=== PATIENT | male | born 1975 | race Two or more races ===

== ENCOUNTER 2020-01-27 12:58 | Inpatient (IN) | payer MEDICAID ==
[~2020-01-27] VITALS: Ht 177.8 cm; Wt 69.8 kg
[~2020-01-27 12:58] MED LIST: ASPI81CH43 PO; INSUINJ IJ; INSUINJ37 SUBCUT; LISI-275 PO; METO25TA5 PO
[2020-01-27] MEDS ORDERED: SODIUM CHLORIDE 0.9% 1,000 ML IVB ONE (14:34)
[2020-01-27 15:03] LABS: Basophils # (auto) 0.1 10 ^3/uL (0-0.2); Basophils % (auto) 0.6 % (0.0-2.0); Eosinophils # (auto) 0 10 ^3/uL (0-0.8); Eosinophils % (auto) 0.4 % (0.0-7.0); Hematocrit 35.5 % (41.0-53.0); Lymphocytes # (auto) 0.9 10 ^3/uL (0.4-5.4); Lymphocytes % (auto) 8.9 % (10.0-50.0); Mean Corpuscular Hemoglobin 28.7 pg (28.0-32.0); Mean Corpuscular Hgb Conc. 33.7 g/dL (32.0-36.0); Monocytes # (auto) 0.5 10 ^3/uL (0-1.3); Monocytes % (auto) 4.8 % (0.0-12.0); Neutrophils # (auto) 8.7 10 ^3/uL (1.6-8.6); Neutrophils % (auto) 85.3 % (37.0-80.0); Platelet Count (auto) 338 10^3/uL (140-450); Red Blood Cells 4.17 10^6/uL (4.5-5.90); White Blood Cell 10.2 10^3/uL (4.4-10.8)
[2020-01-27 15:13] LABS: Partial Thromboplastin Time 27.6 sec (23.64-32.05)
[2020-01-27 15:18] LABS: Albumin 1.8 g/dL (3.4-5.0); Anion Gap 7 (5-15); Blood Urea Nitrogen 47 mg/dL (7-18); Calcium 7.8 mg/dL (8.5-10.1); Carbon Dioxide 25 mmol/L (21-32); Chloride 91 mmol/L (98-107); Potassium 4.1 mmol/L (3.5-5.1); Sodium 123 mmol/L (136-145)
[2020-01-27 15:26] LABS: Alanine Aminotransferase 18 U/L (16-61); Alkaline Phosphatase 180 U/L (45-117); Aspartate Aminotransferase 13 U/L (15-37); BUN/Creatinine Ratio 14.6; Bilirubin, Total 0.3 mg/dL (0.2-1.0); GFR African American 27 mL/min; GFR Non-African American 22 mL/min; Total Protein 5.9 g/dL (6.4-8.2)
[2020-01-27 15:36] LABS: Glucose 926 mg/dL (74-106)
[2020-01-27] MEDS ORDERED: CLINDAMYCIN 600MG IV 50 ML IV ONE (15:45)
[2020-01-27] MEDS ORDERED: InsuLIN REG 1unit/0.01ml Soln (100units/ml) IV ONE (16:00)
[2020-01-27] MEDS ORDERED: SODIUM CHLORIDE 0.9% 1,000 ML IV ONE ×2 (16:00→22:30)
[2020-01-27 16:58] LABS: Urine Bacteria NONE SEEN /hpf (None Seen); Urine Blood 1+ /uL (Negative); Urine Specific Gravity 1.016 (1.001-1.035); Urine WBC <1 /hpf (0 - 3)
[2020-01-27] MEDS ORDERED: SODIUM CHLORIDE 0.9% 1,000 ML IV SCH (17:00)
[2020-01-27] MEDS ORDERED: DEXTROSE (50%) 50ML SYRG IV ONE (17:00)
[2020-01-27] MEDS ORDERED: levoFLOXacin 500MG 100 ML IV ONE (17:00)
[2020-01-27] MEDS ORDERED: hydrALAZINE HCL 20 MG/ML VL IV PRN (17:00)
[2020-01-27] MEDS: ACCU-CHEK COMFORT CURVE STRIP VI SCH ×2 (18:07→21:45)
[2020-01-27] MEDS: InsuLIN REG 1unit/0.01ml Soln (100units/ml) SC SCH ×2 (18:24→21:49)
[2020-01-27 18:33] LABS: Protein, Urine 310.2 mg/dL (0.0-11.9)
[2020-01-27] MEDS: INSULIN LANTUS (GLARGINE) 1 /0.01ml (100units/ml) SC SCH (19:17)
[2020-01-27] MEDS ORDERED: ERGOCALCIFEROL 50,000 UNIT(1.25MG) CAP PO SCH (20:30)
[2020-01-27] MEDS ORDERED: INSU1INJ19 SC (20:32)
[2020-01-27] MEDS ORDERED: INSU100I27 SC (20:33)
[2020-01-27] MEDS ORDERED: LOSA25TA38 PO (20:35)
[2020-01-27] MEDS ORDERED: FURO40TA4 PO (20:35)
[2020-01-27] MEDS ORDERED: METO25TA5 PO (20:35)
[2020-01-27] MEDS ORDERED: ACE3T PO (20:36)
[2020-01-27] MEDS ORDERED: ATOR20TA50 PO (20:36)
[2020-01-27] MEDS ORDERED: CHLO25TA22 PO (20:37)
[2020-01-27] MEDS ORDERED: CEPH500C PO (20:37)
[2020-01-27] MEDS ORDERED: DEXTROSE (50%) 50ML SYRG IV PRN (22:30)
[2020-01-27 22:56] LABS: BUN/Creatinine Ratio 15.3; Calcium 8.6 mg/dL (8.5-10.1); Potassium 3.8 mmol/L (3.5-5.1)
[2020-01-27] MEDS: CLINDAMYCIN 600MG IV 50 ML IV SCH (23:46)
[2020-01-27] MEDS: METOPROLOL TARTRATE 25 MG TAB PO SCH (23:47)
[2020-01-28] VITALS (7 sets, daily range): BP systolic 107–142; BP diastolic 66–91
[2020-01-28] MEDS: ACCU-CHEK COMFORT CURVE STRIP VI SCH ×6 (00:19→20:20)
[2020-01-28] MEDS: InsuLIN REG 1unit/0.01ml Soln (100units/ml) SC SCH ×6 (00:23→20:00)
--- NOTE | 2020-01-28 00:34 | NUR ---
Telemetry admit from NELLA BR[facility]COE admitted to Telemetry unit after SBAR received. Patient oriented to SHIVANI MESSER, primary RN, unit, room, bed, and unit policies regarding patient care and visiting hours. Patient now on continuous telemetry monitoring, tele box # [id number] and telemetry reading on arrival to unit is SR. Patient encouraged to call if they need something. All questions and concerns addressed, patient verbalized understanding.
[2020-01-28] MEDS ORDERED: GABA100C9 PO (02:14)
--- NOTE | 2020-01-28 03:15 | NUR ---
ASSUMED CARE ASSUMED CARE OF PATIENT FROM ANITA KLEIN. PATIENT AWAKE, ALERT, AND ORIENTED. NO S/S OF DISTRESS, SOB, OR C/O PAIN. UPDATED PATIENT ON POC. PATIENT VERBALIZED UNDERSTANDING. WILL CONTINUE TO MONITOR Addendum: 01/28/20 at 0452 by JOSÉ MIGUEL HAMMOND RN RN BED IN LOWEST/LOCKED POSITION, BED RAILS UP X2, CALL LIGHT WITHIN REACH
--- NOTE | 2020-01-28 04:00 | NUR ---
PHOTO WOUND PHOTO TAKEN PER PROTOCOL
[2020-01-28] MEDS: CLINDAMYCIN 600MG IV 50 ML IV SCH ×3 (05:31→21:35)
[2020-01-28 05:50] LABS: Basophils # (auto) 0.1 10 ^3/uL (0-0.2); Basophils % (auto) 0.9 % (0.0-2.0); Eosinophils # (auto) 0.2 10 ^3/uL (0-0.8); Eosinophils % (auto) 1.7 % (0.0-7.0); Hematocrit 33.9 % (41.0-53.0); Hemoglobin 11.9 g/dL (13.5-17.5); Lymphocytes # (auto) 1.4 10 ^3/uL (0.4-5.4); Lymphocytes % (auto) 13.9 % (10.0-50.0); Mean Corpuscular Hgb Conc. 35.1 g/dL (32.0-36.0); Mean Corpuscular Volume 82.8 fL (80.0-100.0); Monocytes # (auto) 0.6 10 ^3/uL (0-1.3); Monocytes % (auto) 5.7 % (0.0-12.0); Neutrophils % (auto) 77.8 % (37.0-80.0); Platelet Count (auto) 342 10^3/uL (140-450); Red Cell Distribution Width 12.9 % (11.8-14.3); White Blood Cell 10.3 10^3/uL (4.4-10.8)
[2020-01-28 06:07] LABS: INR 1.03 (0.9-1.15)
[2020-01-28 06:12] LABS: Calcium 8.6 mg/dL (8.5-10.1); Potassium 3.5 mmol/L (3.5-5.1)
[2020-01-28 06:14] LABS: BUN/Creatinine Ratio 16.3; Phosphorus 3.6 mg/dL (2.5-4.90)
[2020-01-28] MEDS: levoFLOXacin 250MG 50 ML IV SCH (09:29)
[2020-01-28] MEDS: METOPROLOL TARTRATE 25 MG TAB PO SCH ×2 (09:29→21:36)
[2020-01-28] MEDS ORDERED: ASPirin 81 mg TAB PO SCH (10:00)
[2020-01-28] MEDS ORDERED: LIDOCAINE 1% (LOCAL ANESTH.) PF 5ml SDV ONE (12:36)
[2020-01-28] MEDS ORDERED: SUCCINYLCHOLINE CHLORIDE 20 MG/ML 10ML VIAL IV ONE (12:36)
[2020-01-28] MEDS ORDERED: MIDAZOLAM HCL 1MG/1ML-2 ML VIAL ONE (12:38)
[2020-01-28] MEDS ORDERED: METOCLOPRAMIDE HCL 5MG/ml INJ 2ml VIAL ONE (12:39)
[2020-01-28] MEDS ORDERED: ETOMIDATE (2MG/ML) 20ML VIAL IV ONE (12:39)
[2020-01-28] MEDS ORDERED: ROCURONIUM 10MG/ML 10ML VIAL IV ONE (12:40)
[2020-01-28] MEDS ORDERED: fentaNYL CITRATE 100 MCG/2 ML VL ONE (12:49)
[2020-01-28] MEDS ORDERED: hydrALAZINE HCL 20 MG/ML VL ONE (12:50)
[2020-01-28] MEDS ORDERED: STERILE WATER 10 ML ONE (12:58)
[2020-01-28] MEDS ORDERED: ePHEDrine SULFATE 50 MG/ML AMP ONE (12:58)
[2020-01-28] MEDS ORDERED: HYDROmorphone HCL 2 MG/ML VL IV PRN ×2 (13:00)
[2020-01-28] MEDS ORDERED: METOCLOPRAMIDE HCL 5MG/ml INJ 2ml VIAL IV PRN (13:00)
[2020-01-28] MEDS ORDERED: NALOXONE HCL 0.4 MG/ML VIAL IV PRN (13:00)
[2020-01-28] MEDS ORDERED: ACCU-CHEK COMFORT CURVE STRIP VI ONE (13:00)
[2020-01-28] MEDS ORDERED: NEOSTIGMINE 1 MG/ML INJ (10mg/10ML VIAL) ONE (13:19)
[2020-01-28] MEDS ORDERED: GLYCOPYRROLATE 0.2 MG/ML 1ML VIAL ONE (13:19)
[2020-01-28] MEDS ORDERED: ESMOLOL HCL 10 ML IV ONE (13:23)
[2020-01-28] MEDS ORDERED: HYDROcodone-ACET 5/325MG TAB PO PRN (13:30)
--- NOTE | 2020-01-28 13:52 | NUR ---
assessment re: consult depression Patient is a 45 year old male who is alert and oriented. Patients cognitive abilities are intact. Prior to admission patient lived home with his Zoe and family and functioned with assistance. Per patient he will return home to his prior living arrangements post discharge and family will transport him home. Patient informed me he has a fww, cane, and shower chair for home use. Patients PCP is Dr Burden. I informed patient about his ss consult regarding mental health concern and new onset depression. Patient informed me he has been depressed due to his increased pain. I have spoken with patient regarding pain management, behavioral health, IE therapist, diabetic education and follow up with PCP. Patient has resources for crisis center and behavioral health, patient will follow up wioth IE therapist, patient has an appointment with pain management and for diabetic education. Patient has been in contact with his PCP and will follow up on discharge. Patient is waiting for back surgery, but needs his HbA1c in better control. Patient has no SI or HI. Patient is not high risk for self harm. I informed patient he has a right to speak to a social sciences department chair regarding all care. I informed patient he has a right to participate in any and all discharge planning. Patient does not have a POA and advanced directive. I have offered patient information on POA and advanced directives. I informed the patient the advantages and benefits of having an Advanced Directive. Patient verbalized understanding and agreed to discharge plan. Addendum: 01/28/20 at 1402 by Jennifer Solitario Amended: Links added.
[2020-01-28] MEDS: INSULIN LANTUS (GLARGINE) 1 /0.01ml (100units/ml) SC SCH (22:00)
[2020-01-29] VITALS (7 sets, daily range): BP systolic 100–143; BP diastolic 59–97
[2020-01-29] MEDS: ACCU-CHEK COMFORT CURVE STRIP VI SCH ×6 (00:27→20:20)
[2020-01-29] MEDS: InsuLIN REG 1unit/0.01ml Soln (100units/ml) SC SCH ×6 (04:14→20:24)
--- NOTE | 2020-01-29 05:45 | NUR ---
PATIENT SITTING UP AT BEDSIDE,REPORTING LIGHTHEADEDNESS. PATIENT REQUEST'S TO CHECK BLOOD PRESSURE. BLOOD PRESSURE IS 106/59 HR 83. PATIENT ASSISTED BACK IN BED.
[2020-01-29] MEDS: CLINDAMYCIN 600MG IV 50 ML IV SCH ×3 (05:46→22:21)
[2020-01-29 06:22] LABS: Potassium 3.3 mmol/L (3.5-5.1)
[2020-01-29 06:27] LABS: BUN/Creatinine Ratio 13.8; Calcium 8.8 mg/dL (8.5-10.1)
[2020-01-29] MEDS: levoFLOXacin 250MG 50 ML IV SCH (10:25)
[2020-01-29] MEDS: METOPROLOL TARTRATE 25 MG TAB PO SCH ×2 (10:26→22:21)
[2020-01-29] MEDS ORDERED: SODIUM CHLORIDE 0.9% 2,000 ML IV ONE (14:15)
--- NOTE | 2020-01-29 15:35 | NUR ---
D/C planning Regarding social service consult for home health for wound care, and IE/ [facility]. Faxed clinical information to [facility] and [facility]. Per Dana with [facility] [phone] patient has been accepted and service to start within 24-48hrs upon d/c day. Faxed clinical information to [facility] medical group regarding follow up appointment with PCP. Faxed clinical information to IE requesting authorization for home health and to refer patient to [facility].
[2020-01-29 19:17] LABS: BUN/Creatinine Ratio 12.1; Calcium 8.6 mg/dL (8.5-10.1); Potassium 3.7 mmol/L (3.5-5.1)
[2020-01-29] MEDS ORDERED: DOCU-94 PO (19:18)
[2020-01-29] MEDS ORDERED: HYDR-4833 PO (19:18)
[2020-01-29] MEDS ORDERED: AMOX-277 PO (19:18)
--- NOTE | 2020-01-29 19:20 | NUR ---
OPENING SHIFT NOTE Assumed care of patient who is A&O x4. Currently on RA with no s/s of distress. denies pain at this time. Patient is ambulatory with a cane at baseline. Reports significant peripheral neuropathy in all four extremities. Dressing to left perineum is CDI. PIV in left AC is intact and patent. IVF infusing as ordered. POC discussed and patient encouraged to call for assistance when needed. Bed is in low locked position with side rails up x2. Call light is within reach and patient encouraged to call for assistance when needed. Will continue to monitor for changes PRN.
[2020-01-29] MEDS: SODIUM CHLORIDE 0.9% 1,000 ML IV SCH (19:30)
--- NOTE | 2020-01-29 20:57 | NUR ---
Left message for Dr. Graf regarding most recent labs.
--- NOTE | 2020-01-29 21:00 | NUR ---
Received call back from Dr. Graf. Informed him of patient's most recent BUN and Creatinine. Dr. Graf would like to keep the patient one more night due to increase in creatinine.
[2020-01-29] MEDS ORDERED: SODIUM CHLORIDE 0.9% 1,000 ML IV ONE (21:15)
[2020-01-29] MEDS: INSULIN LANTUS (GLARGINE) 1 /0.01ml (100units/ml) SC SCH (22:22)
--- NOTE | 2020-01-29 22:33 | NUR ---
Received call from Dr. Field regarding new orders for fluid bolus. Will follow through.
[2020-01-30] MEDS: ACCU-CHEK COMFORT CURVE STRIP VI SCH ×4 (00:35→12:00)
[2020-01-30] MEDS: InsuLIN REG 1unit/0.01ml Soln (100units/ml) SC SCH ×4 (00:41→13:22)
[2020-01-30 05:00] VITALS: BP 147/96
[2020-01-30] MEDS: SODIUM CHLORIDE 0.9% 1,000 ML IV SCH (05:36)
[2020-01-30] MEDS: CLINDAMYCIN 600MG IV 50 ML IV SCH ×2 (05:37→14:00)
[2020-01-30 06:02] LABS: Potassium 3.1 mmol/L (3.5-5.1)
[2020-01-30 06:17] LABS: BUN/Creatinine Ratio 12.5; Calcium 8.2 mg/dL (8.5-10.1)
--- NOTE | 2020-01-30 07:35 | NUR ---
RECEIVED PATIENT AWAKE, ALERT AND ORIENTED X4. PATIENT DENIES SOB AND PAIN, NO S/S DISTRESS NOTED AT THIS TIME. PLAN OF CARE DISCUSSED. PATIENT ADVISED TO CALL FOR ASSISTANCE PRN. BED IN LOW AND LOCKED POSITION, CALL LIGHT AND PHONE WITHIN REACH. WILL CONTINUE TO MONITOR Q1HR AND PRN.
[2020-01-30 08:00] VITALS: BP 110/67
[2020-01-30 09:00] VITALS: BP 139/88
[2020-01-30] MEDS: METOPROLOL TARTRATE 25 MG TAB PO SCH (09:46)
[2020-01-30] MEDS: levoFLOXacin 250MG 50 ML IV SCH (09:46)
[2020-01-30] MEDS ORDERED: SODIUM CHLORIDE 0.9% 1,000 ML IV ONE (11:00)
[2020-01-30 11:09] LABS: Immunoglobulin G, Serum 907 mg/dL (603-1613)
--- NOTE | 2020-01-30 12:30 | NUR ---
PATIENT'S BP IS 161/95. MD MADE AWARE. PER MD OK TO DISCHARGE PATIENT.
[2020-01-30 13:00] VITALS: BP 163/109
--- NOTE | 2020-01-30 13:00 | NUR ---
DR. Prabhjot DELEON AT BEDSIDE. DISCUSSED DISCHARGE PLAN WITH PATIENT. ORDERED LOPRESSOR 12.5MG NOW. WILL MEDICATE ACCORDINGLY.
[2020-01-30] MEDS ORDERED: METOPROLOL TARTRATE 25 MG TAB PO ONE (13:15)
[2020-01-30 13:38] VITALS: BP 161/95
--- NOTE | 2020-01-30 14:08 | NUR ---
PATIENT REFUSED ADMINISTRATION OF CLEOCIN ANTIBIOTIC HE IS BEING DISCHARGED PER MD'S ORDER.
--- NOTE | 2020-01-30 15:35 | NUR ---
patient discharged home with health service per MD's order. Patient verbalized understanding of discharge instructions. IV discontinued and tele box returned to ICU. Patient is alert and oriented x4 at discharge time. Patient aware that [facility] health with provide wound care service 24-48hr after discharge.
[2020-02-01 10:51] LABS: Hepatitis B Surface Antigen Negative (Negative); Hepatitis C Antibody Negative (Negative)
== END 2020-01-30 15:35 | disposition home health service (06) | DRG 364 ==
LOC: ER 12:58 → EDBD 12:58 → OVERFLOW 12:59 → TELE-WESTW 23:53
PROVIDERS: ADMIT Internal Medicine; ATTEND Internal Medicine
PROC: 0J9B0ZZ Drainage of Perineum Subcutaneous Tissue and Fascia, Open Approach (ICD-10-PCS; 2020-01-28)
PROC: 0JBB0ZZ Excision of Perineum Subcutaneous Tissue and Fascia, Open Approach (ICD-10-PCS; principal; 2020-01-28 12:35)
DX: L02.215 Cutaneous abscess of perineum (principal); L02.416 Cutaneous abscess of left lower limb; D64.9 Anemia, unspecified; E87.1 Hypo-osmolality and hyponatremia; N18.3 Chronic kidney disease, stage 3 (moderate); R80.9 Proteinuria, unspecified; E11.01 Type 2 diabetes mellitus with hyperosmolarity with coma; E78.5 Hyperlipidemia, unspecified; N17.0 Acute kidney failure with tubular necrosis; E11.42 Type 2 diabetes mellitus with diabetic polyneuropathy; E11.65 Type 2 diabetes mellitus with hyperglycemia; I12.9 Hypertensive chronic kidney disease with stage 1 through stage 4 chronic kidney disease, or unspecified chronic kidney disease; E11.22 Type 2 diabetes mellitus with diabetic chronic kidney disease; Z79.899 Other long term (current) drug therapy; Z79.82 Long term (current) use of aspirin; Z82.49 Family history of ischemic heart disease and other diseases of the circulatory system; Z79.4 Long term (current) use of insulin; Z83.3 Family history of diabetes mellitus
CPT/HCPCS: 36415; 71045; 76775; 80048; 80053; 81001; 82306; 82570; 82784; 82962; 83036; 83605; 83735; 83970; 84100; 84156; 84300; 84484; 85025; 85610; 85730; 86334; 86803; 86850; 86900; 86901; 87040; 87070; 87075; 87077; 87186; 87205; 87340; 93005; 96361; 96365; 96366; 96367; 96372; 96375; G0378; J0330; J1815; J1956; J2250; J3490

== ENCOUNTER 2020-06-10 19:09 | Emergency (ER) | payer MEDICAID ==
[~2020-06-10] VITALS: Ht 182.9 cm; Wt 102.1 kg
[~2020-06-10 19:09] MED LIST changes: +ACE3T PO; +AMOX-277 PO; +ATOR20TA50 PO; +DOCU-94 PO; +GABA100C9 PO; +HYDR-4833 PO; +INSU100I27 SC; +INSU1INJ19 SC; -INSUINJ IJ; -INSUINJ37 SUBCUT; -LISI-275 PO
[2020-06-11 04:37] VITALS: BP 169/94
[2020-06-11 04:55] LABS: Basophils # (auto) 0.1 10 ^3/uL (0-0.2); Basophils % (auto) 0.8 % (0.0-2.0); Eosinophils # (auto) 0.1 10 ^3/uL (0-0.8); Eosinophils % (auto) 0.6 % (0.0-7.0); Hematocrit 33.5 % (41.0-53.0); Hemoglobin 11.3 g/dL (13.5-17.5); Lymphocytes % (auto) 8.9 % (10.0-50.0); Mean Corpuscular Hemoglobin 28.4 pg (28.0-32.0); Mean Corpuscular Hgb Conc. 33.7 g/dL (32.0-36.0); Mean Corpuscular Volume 84.1 fL (80.0-100.0); Monocytes # (auto) 0.6 10 ^3/uL (0-1.3); Monocytes % (auto) 5.3 % (0.0-12.0); Neutrophils # (auto) 9.4 10 ^3/uL (1.6-8.6); Neutrophils % (auto) 84.4 % (37.0-80.0); Nucleated Red Blood Cells % 0.1 %; Platelet Count (auto) 318 10^3/uL (140-450); Red Blood Cells 3.99 10^6/uL (4.5-5.90); Red Cell Distribution Width 13.5 % (11.8-14.3); White Blood Cell 11.1 10^3/uL (4.4-10.8)
[2020-06-11] MEDS ORDERED: HALOPERIDOL LACTATE 5 MG/ML INJ VIAL IM ONE (05:00)
[2020-06-11] MEDS ORDERED: diphenhdrAMINE HCL 50 MG/1 ML VL IM ONE (05:00)
[2020-06-11 05:14] LABS: Albumin 2.9 g/dL (3.4-5.0); Calcium 8.1 mg/dL (8.5-10.1); Potassium 3.5 mmol/L (3.5-5.1)
[2020-06-11 05:16] LABS: BUN/Creatinine Ratio 10.5
[2020-06-11 05:19] LABS: Bilirubin, Total 0.3 mg/dL (0.2-1.0)
== END 2020-06-11 06:42 | disposition home or self-care (01) ==
LOC: ER 19:09
DX: E11.22 Type 2 diabetes mellitus with diabetic chronic kidney disease (principal); I12.9 Hypertensive chronic kidney disease with stage 1 through stage 4 chronic kidney disease, or unspecified chronic kidney disease; N18.9 Chronic kidney disease, unspecified; E66.9 Obesity, unspecified; K21.9 Gastro-esophageal reflux disease without esophagitis; Z68.30 Body mass index [BMI] 30.0-30.9, adult
CPT/HCPCS: 36415; 80053; 82140; 82962; 83880; 84484; 85025

== ENCOUNTER 2020-06-16 17:13 | Inpatient (IN) | payer MEDICAID ==
[~2020-06-16] VITALS: Ht 182.9 cm; Wt 100.0 kg
[2020-06-16 18:43] LABS: Basophils # (auto) 0 10 ^3/uL (0-0.2); Basophils % (auto) 0.4 % (0.0-2.0); Eosinophils # (auto) 0.1 10 ^3/uL (0-0.8); Eosinophils % (auto) 0.8 % (0.0-7.0); Hematocrit 29.2 % (41.0-53.0); Lymphocytes # (auto) 0.7 10 ^3/uL (0.4-5.4); Lymphocytes % (auto) 6.3 % (10.0-50.0); Mean Corpuscular Hemoglobin 28.6 pg (28.0-32.0); Mean Corpuscular Hgb Conc. 34.3 g/dL (32.0-36.0); Mean Corpuscular Volume 83.4 fL (80.0-100.0); Monocytes # (auto) 0.6 10 ^3/uL (0-1.3); Monocytes % (auto) 5.9 % (0.0-12.0); Neutrophils # (auto) 9.3 10 ^3/uL (1.6-8.6); Neutrophils % (auto) 86.6 % (37.0-80.0); Platelet Count (auto) 260 10^3/uL (140-450); Red Cell Distribution Width 13.5 % (11.8-14.3); White Blood Cell 10.8 10^3/uL (4.4-10.8)
[2020-06-16 19:00] LABS: Albumin 2.6 g/dL (3.4-5.0); Calcium 7.8 mg/dL (8.5-10.1); Magnesium 2.6 mg/dL (1.6-2.6); Potassium 3.5 mmol/L (3.5-5.1)
[2020-06-16 19:17] LABS: BUN/Creatinine Ratio 9.6; Bilirubin, Total 0.3 mg/dL (0.2-1.0); Total Protein 6.3 g/dL (6.4-8.2)
[2020-06-16] MEDS ORDERED: MORPHINE SULF INJ 2 MG/ML SYRINGE 1ML IV ONE (19:45)
[2020-06-16] MEDS ORDERED: ASPirin 81 mg TAB PO ONE ×2 (19:45→20:30)
[2020-06-16] MEDS ORDERED: CLOPIDOGREL BISULFATE 75 MG TAB PO ONE ×3 (19:45→20:00)
[2020-06-16] MEDS ORDERED: ONDANSETRON ODT 4 MG TAB PO ONE (19:45)
[2020-06-16] MEDS ORDERED: NITROGLYCERIN 0.4 MG SL TAB SL ONE (19:45)
[2020-06-16] MEDS ORDERED: CLOPIDOGREL 300 MG TAB PO ONE (20:00)
[2020-06-16] MEDS: CLOPIDOGREL BISULFATE 75 MG TAB PO ONE ×2 (20:39→20:58)
[2020-06-16 21:48] LABS: Phosphorus 4.2 mg/dL (2.5-4.90); Uric Acid 9.7 mg/dL (3.5-7.2)
[2020-06-16 22:28] LABS: % Iron Saturation 11.3 % (20-55)
[2020-06-16] MEDS ORDERED: HYDROcodone-ACET 5/325MG TAB PO PRN (22:30)
[2020-06-16] MEDS ORDERED: DOCUSATE SOD 100 MG CAP PO PRN (22:30)
[2020-06-16] MEDS ORDERED: MORPHINE SULF INJ 2 MG/ML SYRINGE 1ML IV PRN (22:30)
[2020-06-16] MEDS ORDERED: NITROGLYCERIN 0.4 MG SL TAB SL PRN (22:30)
[2020-06-16] MEDS ORDERED: DEXTROSE (50%) 50ML SYRG IV PRN (22:30)
[2020-06-16] MEDS ORDERED: MORPHINE SULFATE 4 MG/ML SYR/VIAL IV PRN (22:30)
[2020-06-16] MEDS ORDERED: ACETAMINOPHEN 325 MG TAB PO PRN (22:30)
[2020-06-17 03:02] LABS: Hepatitis B Surface Antigen Negative (Negative); Hepatitis C Antibody Negative (Negative)
[2020-06-17 03:49] LABS: Amphetamine Screen, Urine NEGATIVE (NEGATIVE); Barbiturate Scree,Urine NEGATIVE (NEGATIVE); Benzodiazephine Screen, Urine NEGATIVE (NEGATIVE); Cannabinoid Screen, Urine NEGATIVE (NEGATIVE); Cocaine Screen, Urine NEGATIVE (NEGATIVE); Opiate Scree,Urine NEGATIVE (NEGATIVE); Phencyclidine Screen, Urine NEGATIVE (NEGATIVE); Protein, Urine 791.5 mg/dL (0.0-11.9)
[2020-06-17 03:55] LABS: Urine Amorphous Crystal FEW /hpf (None Seen); Urine Bacteria FEW /hpf (None Seen); Urine Blood 1+ /uL (Negative); Urine Hyaline Cast MOD /lpf (0 - 2); Urine Mucus FEW (None Seen); Urine Specific Gravity 1.012 (1.001-1.035); Urine WBC 2 /hpf (0 - 3)
[2020-06-17 03:56] LABS: Alcohol, Urine < 3.0 mg/dL (0-10)
[2020-06-17] MEDS: InsuLIN REG 1unit/0.01ml Soln (100units/ml) SC SCH ×5 (04:44→21:19)
[2020-06-17] MEDS: ACCU-CHEK COMFORT CURVE STRIP VI SCH ×5 (04:44→21:19)
[2020-06-17] MEDS: SODIUM CHLOR 0.9% PF (SALINE LOCK) 10ML VIAL/SYR IV SCH ×3 (05:47→22:45)
[2020-06-17] MEDS ORDERED: SEVELAMER 800 MG TAB PO SCH (08:00)
[2020-06-17 08:17] LABS: Basophils # (auto) 0 10 ^3/uL (0-0.2); Basophils % (auto) 0.4 % (0.0-2.0); Eosinophils # (auto) 0 10 ^3/uL (0-0.8); Eosinophils % (auto) 0.3 % (0.0-7.0); Hematocrit 28.2 % (41.0-53.0); Hemoglobin 9.8 g/dL (13.5-17.5); Lymphocytes # (auto) 0.8 10 ^3/uL (0.4-5.4); Lymphocytes % (auto) 7.1 % (10.0-50.0); Mean Corpuscular Hemoglobin 28.9 pg (28.0-32.0); Mean Corpuscular Hgb Conc. 34.7 g/dL (32.0-36.0); Mean Corpuscular Volume 83.1 fL (80.0-100.0); Monocytes # (auto) 0.8 10 ^3/uL (0-1.3); Neutrophils # (auto) 9.2 10 ^3/uL (1.6-8.6); Neutrophils % (auto) 85.2 % (37.0-80.0); Platelet Count (auto) 258 10^3/uL (140-450); Red Blood Cells 3.39 10^6/uL (4.5-5.90); Red Cell Distribution Width 13.6 % (11.8-14.3); White Blood Cell 10.8 10^3/uL (4.4-10.8)
[2020-06-17 08:33] LABS: Potassium 3.3 mmol/L (3.5-5.1)
[2020-06-17 08:46] LABS: Albumin 2.3 g/dL (3.4-5.0); BUN/Creatinine Ratio 9.2; Bilirubin, Total 0.4 mg/dL (0.2-1.0); Total Protein 5.8 g/dL (6.4-8.2)
[2020-06-17] MEDS: FAMOTIDINE 20 MG TAB PO SCH (09:44)
[2020-06-17] MEDS: CLOPIDOGREL BISULFATE 75 MG TAB PO SCH (09:44)
[2020-06-17] MEDS: ASPirin 81 mg TAB PO SCH (09:44)
[2020-06-17] MEDS ORDERED: ASPirin 81 mg TAB PO SCH (10:00)
[2020-06-17] MEDS ORDERED: HEPARIN SODIUM (PORCINE) 5000 UNITS/ML 1ML VIAL SC SCH (10:00)
[2020-06-17] MEDS: HEPARIN SODIUM (PORCINE) 5000 UNITS/ML 1ML VIAL IV ONE ×2 (12:15→15:46)
[2020-06-17] MEDS: B-COMPLEX W/ C & FOLIC ACID(NEPHROVITE TAB) PO SCH (12:29)
[2020-06-17] MEDS ORDERED: ERGOCALCIFEROL 50,000 UNIT(1.25MG) CAP PO SCH (12:30)
--- NOTE | 2020-06-17 14:45 | NUR ---
SPOKE TO DR GOLDMAN RE: CONSULT FOR TUNNELED CATH - REQUESTS GREEN CHAIN MARKER TO PHONE DR RAMIREZ RE: URGENCY OF REQUEST - CALL PLACED TO DR RAMIREZ. GREEN CHAIN MARKER SPOKE TO PATIENT'S RN PADMINI - INFORMED HER OF SAME. PATIENT CURRENTLY ON HEPARIN 5000U SC BID AND PLAVIX 75MG QD WITH DOSE 300MG GIVEN LAST HS. STAT COAGS ORDERED PER V.O. OF DR GOLDMAN.
[2020-06-17 14:58] LABS: Basophils # (auto) 0 10 ^3/uL (0-0.2); Basophils % (auto) 0.3 % (0.0-2.0); Eosinophils # (auto) 0 10 ^3/uL (0-0.8); Eosinophils % (auto) 0.4 % (0.0-7.0); Hematocrit 28.5 % (41.0-53.0); Hemoglobin 9.8 g/dL (13.5-17.5); Lymphocytes # (auto) 0.8 10 ^3/uL (0.4-5.4); Mean Corpuscular Hemoglobin 28.6 pg (28.0-32.0); Mean Corpuscular Hgb Conc. 34.3 g/dL (32.0-36.0); Mean Corpuscular Volume 83.3 fL (80.0-100.0); Monocytes # (auto) 0.8 10 ^3/uL (0-1.3); Monocytes % (auto) 7.2 % (0.0-12.0); Neutrophils # (auto) 9.6 10 ^3/uL (1.6-8.6); Neutrophils % (auto) 85.1 % (37.0-80.0); Platelet Count (auto) 267 10^3/uL (140-450); Red Blood Cells 3.42 10^6/uL (4.5-5.90); Red Cell Distribution Width 13.7 % (11.8-14.3); White Blood Cell 11.2 10^3/uL (4.4-10.8)
[2020-06-17 15:14] LABS: INR 1.02 (0.9-1.15); Partial Thromboplastin Time 27.9 sec (23.0-31.2)
[2020-06-17] MEDS: HEPARIN DRIP/D5W 100UNITS/ML 250 ML IV SCH (15:53)
[2020-06-17 17:30] VITALS: BP 136/82
[2020-06-17] MEDS: METOPROLOL TARTRATE 25 MG TAB PO SCH ×2 (18:07→22:46)
[2020-06-17] MEDS ORDERED: NIFE1TAB30 PO (18:42)
[2020-06-17] MEDS ORDERED: CHLO25TA34 PO (18:42)
[2020-06-17] MEDS ORDERED: MINO10TA2 PO (18:42)
[2020-06-17] MEDS ORDERED: FURO40TA4 PO (18:42)
--- NOTE | 2020-06-17 19:45 | NUR ---
OPENING SHIFT NOTE Pt is resting in bed with eyes open and resp rate is even and unlabored. No s/s of any distress noted at this time. Heparin drip infusing at 10mls/hr . POC discussed with pt and pt verbalizes understanding. Bed is low, wheels are locked, and call light is with in reach.
[2020-06-17 22:00] VITALS: BP 142/80
[2020-06-17 23:19] LABS: INR 1.03 (0.9-1.15); Partial Thromboplastin Time 39.8 sec (23.0-31.2)
--- NOTE | 2020-06-18 | NUR ---
PTT= 39.8 AND HEPARIN DRIP INCREASED BY 2MLS/HR PER PROTOCOL. LULU HOWARD AT BEDSIDE TO WITNESS.
[2020-06-18] MEDS: InsuLIN REG 1unit/0.01ml Soln (100units/ml) SC SCH ×6 (04:00→21:03)
[2020-06-18 05:00] VITALS: BP 137/72
[2020-06-18] MEDS: ACCU-CHEK COMFORT CURVE STRIP VI SCH ×6 (05:47→21:03)
[2020-06-18] MEDS: SODIUM CHLOR 0.9% PF (SALINE LOCK) 10ML VIAL/SYR IV SCH ×3 (05:48→21:11)
--- NOTE | 2020-06-18 07:30 | NUR ---
Opening Shift Note Assumed care of patient, awake and alert. No S/S of distress/SOB or pain on room air. Instructed on POC and to call for assist PRN, will continue to monitor for changes Q1hr and PRN. Bed in low and locked position, rails up x2, no-slip socks on.
[2020-06-18 07:41] LABS: Basophils # (auto) 0 10 ^3/uL (0-0.2); Basophils % (auto) 0.4 % (0.0-2.0); Eosinophils # (auto) 0.1 10 ^3/uL (0-0.8); Eosinophils % (auto) 0.5 % (0.0-7.0); Hematocrit 28.7 % (41.0-53.0); Hemoglobin 9.8 g/dL (13.5-17.5); Lymphocytes % (auto) 8.6 % (10.0-50.0); Mean Corpuscular Hemoglobin 28.6 pg (28.0-32.0); Mean Corpuscular Hgb Conc. 34.2 g/dL (32.0-36.0); Mean Corpuscular Volume 83.7 fL (80.0-100.0); Monocytes % (auto) 8.3 % (0.0-12.0); Neutrophils # (auto) 9.7 10 ^3/uL (1.6-8.6); Neutrophils % (auto) 82.2 % (37.0-80.0); Platelet Count (auto) 247 10^3/uL (140-450); Red Blood Cells 3.43 10^6/uL (4.5-5.90); White Blood Cell 11.9 10^3/uL (4.4-10.8)
[2020-06-18 07:57] LABS: Partial Thromboplastin Time 43.2 sec (23.0-31.2)
[2020-06-18 08:00] LABS: Potassium 3.5 mmol/L (3.5-5.1)
[2020-06-18 08:08] LABS: BUN/Creatinine Ratio 9.2; Calcium 8.1 mg/dL (8.5-10.1); Magnesium 2.7 mg/dL (1.6-2.6)
[2020-06-18] MEDS: HEPARIN DRIP/D5W 100UNITS/ML 250 ML IV SCH ×2 (08:18→14:51)
[2020-06-18 09:00] VITALS: BP 149/83
[2020-06-18] MEDS: CLOPIDOGREL BISULFATE 75 MG TAB PO SCH (09:54)
[2020-06-18] MEDS: B-COMPLEX W/ C & FOLIC ACID(NEPHROVITE TAB) PO SCH (09:55)
[2020-06-18] MEDS: ASPirin 81 mg TAB PO SCH (09:55)
[2020-06-18] MEDS: METOPROLOL TARTRATE 25 MG TAB PO SCH ×2 (09:56→21:12)
--- NOTE | 2020-06-18 11:35 | NUR ---
VP GENETIC AT BEDSIDE
[2020-06-18 12:52] VITALS: BP 159/85
--- NOTE | 2020-06-18 14:16 | NUR ---
CALL TO LAB AWAITING PT/PTT RESULTS FOR HEPARIN DRIP DOSE ADJUSTMENT, PER ORGANISATIONAL PSYCHOLOGIST RESULTS WILL NOT BE AVAILABLE FOR ANOTHER 15-20 MINUTES, WILL CALL BACK.
[2020-06-18 14:33] LABS: Partial Thromboplastin Time 47.4 sec (23.0-31.2)
--- NOTE | 2020-06-18 14:35 | NUR ---
CRITICAL TROP 2.2, DR TEE AT BEDSIDE NOTIFIED, PATIENT ALREADY SCHEDULED FOR CARDIOLYTE ON SATURDAY, STOP TRENDING TROPS. NO NEW ORDERS.
--- NOTE | 2020-06-18 16:05 | NUR ---
COVID SPECIMEN COLLECTED RAPID AND IN HOUSE, AMBULATED TO LAB.
[2020-06-18 17:00] VITALS: BP 157/88
--- NOTE | 2020-06-18 17:45 | NUR ---
DR Shagufta DELEON AT BEDSIDE
[2020-06-18 21:00] VITALS: BP 147/82
[2020-06-19 00:03] LABS: INR 1.03 (0.9-1.15)
[2020-06-19 00:16] LABS: Partial Thromboplastin Time 83.5 sec (23.0-31.2)
--- NOTE | 2020-06-19 00:20 | NUR ---
PTT= 83.5 AND HEPARIN DRIP DECREASED BY 2MLS/HR PER PROTOCOL. LULU HOWARD AT BEDSIDE TO WITNESS DECREASE FROM 16MLS/HR TO 14MLS/HR.
[2020-06-19] MEDS: ACCU-CHEK COMFORT CURVE STRIP VI SCH ×7 (03:26→23:18)
[2020-06-19] MEDS: InsuLIN REG 1unit/0.01ml Soln (100units/ml) SC SCH ×7 (03:26→23:16)
[2020-06-19 04:28] LABS: Basophils # (auto) 0.1 10 ^3/uL (0-0.2); Basophils % (auto) 0.8 % (0.0-2.0); Eosinophils # (auto) 0.1 10 ^3/uL (0-0.8); Eosinophils % (auto) 1.3 % (0.0-7.0); Hematocrit 28.5 % (41.0-53.0); Hemoglobin 9.8 g/dL (13.5-17.5); Lymphocytes % (auto) 9.6 % (10.0-50.0); Mean Corpuscular Hgb Conc. 34.4 g/dL (32.0-36.0); Mean Corpuscular Volume 84.2 fL (80.0-100.0); Monocytes # (auto) 0.9 10 ^3/uL (0-1.3); Monocytes % (auto) 8.8 % (0.0-12.0); Neutrophils # (auto) 8.2 10 ^3/uL (1.6-8.6); Neutrophils % (auto) 79.5 % (37.0-80.0); Platelet Count (auto) 255 10^3/uL (140-450); Red Blood Cells 3.39 10^6/uL (4.5-5.90); Red Cell Distribution Width 13.7 % (11.8-14.3); White Blood Cell 10.3 10^3/uL (4.4-10.8)
[2020-06-19 04:48] LABS: BUN/Creatinine Ratio 9.1; Calcium 7.9 mg/dL (8.5-10.1); Magnesium 2.3 mg/dL (1.6-2.6); Potassium 3.3 mmol/L (3.5-5.1)
[2020-06-19 05:00] VITALS: BP 147/85
[2020-06-19] MEDS: SODIUM CHLOR 0.9% PF (SALINE LOCK) 10ML VIAL/SYR IV SCH ×3 (05:56→21:20)
[2020-06-19] MEDS: HEPARIN DRIP/D5W 100UNITS/ML 250 ML IV SCH (06:48)
--- NOTE | 2020-06-19 07:30 | NUR ---
Opening Shift Note Assumed care of patient, awake and alert. No S/S of distress/SOB or pain. Instructed on POC and to call for assist PRN, will continue to monitor for changes Q1hr and PRN. Bed in low and locked position, rails up x2, no-slip socks on.
[2020-06-19 08:02] LABS: INR 1.05 (0.9-1.15); Partial Thromboplastin Time 62.3 sec (23.0-31.2)
[2020-06-19] MEDS: ONDANSETRON HCL 4 MG/2 ML VIAL IV PRN (08:27)
[2020-06-19] MEDS: hydrALAZINE HCL 20 MG/ML VL IV PRN (08:28)
[2020-06-19 09:00] VITALS: BP 170/105
[2020-06-19] MEDS ORDERED: POTASSIUM CHL 20 Meq TABLET PO ONE (09:30)
[2020-06-19] MEDS: B-COMPLEX W/ C & FOLIC ACID(NEPHROVITE TAB) PO SCH (10:18)
[2020-06-19] MEDS: CLOPIDOGREL BISULFATE 75 MG TAB PO SCH (10:18)
[2020-06-19] MEDS: ASPirin 81 mg TAB PO SCH (10:18)
[2020-06-19] MEDS: FAMOTIDINE 20 MG TAB PO SCH (10:18)
[2020-06-19] MEDS: METOPROLOL TARTRATE 25 MG TAB PO SCH ×4 (10:19→23:17)
[2020-06-19 11:10] LABS: INR 0.99 (0.9-1.15); Partial Thromboplastin Time 67.3 sec (23.0-31.2)
[2020-06-19 13:00] VITALS: BP 161/85
[2020-06-19] MEDS ORDERED: METOPROLOL TARTRATE 25 MG TAB PO ONE (13:30)
--- NOTE | 2020-06-19 13:52 | NUR ---
PAGE TO WORKING SUPERVISOR FLUOROSCOPE OPERATOR TO NOTIFY OF PLANNED HEMODIALYSIS AND NEED FOR CHAIR TIME SET UP FOR [facility]
[2020-06-19 15:48] LABS: INR 1.01 (0.9-1.15); Partial Thromboplastin Time 66.3 sec (23.0-31.2)
--- NOTE | 2020-06-19 16:30 | NUR ---
IV insertion IV access obtained, via clean sterile technique by inserting 20 gauge catheter at right forearm after 2 attempts. IV secured properly. No trauma to site. Patient tolerated well.
[2020-06-19 17:00] VITALS: BP 153/88
--- NOTE | 2020-06-19 18:26 | NUR ---
PATIENT COMPLAINING OF ACID REFULX/HEARTBURN PAGE TO DR Shagufta DELEON FOR ORDERS, AWAITING CALL BACK.
[2020-06-19] MEDS ORDERED: PANTOPRAZOLE 40 MG/10 ML VIAL INJ IV ONE (18:45)
--- NOTE | 2020-06-19 19:00 | NUR ---
Opening Shift Note Assumed care of patient, awake and alert sitting at the edge of the bed. Patient on room air oxygen saturation 95%. No S/S of distress/SOB or pain. Bed locked in the lowest position, side rails up X2, call light within reach. Instructed on POC and to call for assist PRN, will continue to monitor for changes Q1hr and PRN.
[2020-06-19 22:50] VITALS: BP 157/91
--- NOTE | 2020-06-20 01:00 | NUR ---
VOMIT PATIENT VOMIT INTO EMESIS BAG. PT STATES "I JUST FELT NAUSEAS. I DON'T NEED MEDICATION."
--- NOTE | 2020-06-20 01:20 | NUR ---
ROUNDS PATIENT ASLEEP IN THE LOW FOWLERS LEFT POSITION. NO SIGNS OF SOB/ DISTRESS AT THIS TIME.
[2020-06-20] MEDS: ACCU-CHEK COMFORT CURVE STRIP VI SCH ×6 (03:55→23:41)
[2020-06-20] MEDS: InsuLIN REG 1unit/0.01ml Soln (100units/ml) SC SCH ×6 (03:55→23:41)
--- NOTE | 2020-06-20 05:01 | NUR ---
IV removal IV LEFT AC DC'd with sterile technique, catheter fully intact. Pressure dressing applied to site. Patient tolerated procedure well.
--- NOTE | 2020-06-20 05:01 | NUR ---
IV insertion IV access obtained, via clean sterile technique by inserting 22 gauge catheter at LEFT HAND after 4 attemptS. IV secured properly. No trauma to site. Patient tolerated procedure well.
[2020-06-20] MEDS: SODIUM CHLOR 0.9% PF (SALINE LOCK) 10ML VIAL/SYR IV SCH ×3 (06:00→21:57)
[2020-06-20 06:02] VITALS: BP 152/89
--- NOTE | 2020-06-20 07:00 | NUR ---
CARE ENDORSED TO DAY SHIFT RN. PATIENT ASLEEP IN THE LEFT LATER POSITION. NO SIGNS OF DISTRESS/ SOB.
[2020-06-20 07:10] LABS: Basophils # (auto) 0.1 10 ^3/uL (0-0.2); Basophils % (auto) 0.6 % (0.0-2.0); Eosinophils # (auto) 0.1 10 ^3/uL (0-0.8); Eosinophils % (auto) 0.6 % (0.0-7.0); Hematocrit 28.5 % (41.0-53.0); Hemoglobin 9.5 g/dL (13.5-17.5); Lymphocytes # (auto) 0.4 10 ^3/uL (0.4-5.4); Lymphocytes % (auto) 3.5 % (10.0-50.0); Mean Corpuscular Hemoglobin 28.1 pg (28.0-32.0); Mean Corpuscular Hgb Conc. 33.3 g/dL (32.0-36.0); Mean Corpuscular Volume 84.4 fL (80.0-100.0); Monocytes # (auto) 1.1 10 ^3/uL (0-1.3); Monocytes % (auto) 9.6 % (0.0-12.0); Neutrophils # (auto) 10.1 10 ^3/uL (1.6-8.6); Neutrophils % (auto) 85.7 % (37.0-80.0); Platelet Count (auto) 257 10^3/uL (140-450); Red Blood Cells 3.38 10^6/uL (4.5-5.90); Red Cell Distribution Width 13.7 % (11.8-14.3); White Blood Cell 11.8 10^3/uL (4.4-10.8)
[2020-06-20 07:24] LABS: Partial Thromboplastin Time 28.8 sec (23.0-31.2)
[2020-06-20 07:39] LABS: BUN/Creatinine Ratio 8.4; Calcium 8.4 mg/dL (8.5-10.1); Magnesium 2.1 mg/dL (1.6-2.6); Potassium 3.7 mmol/L (3.5-5.1)
[2020-06-20] MEDS ORDERED: ADENOSINE 84 MG in GIVE UN-DILUTED 0 ML IV STA (08:02)
[2020-06-20 09:03] VITALS: BP 181/94
[2020-06-20] MEDS ORDERED: fentaNYL CITRATE 100 MCG/2 ML VL ONE (09:53)
[2020-06-20] MEDS ORDERED: HEPARIN SODIUM (PORCINE) 5000 UNITS/ML 1ML VIAL ONE ×2 (09:53→10:28)
[2020-06-20] MEDS ORDERED: MIDAZOLAM HCL 1MG/1ML-2 ML VIAL ONE (09:54)
[2020-06-20] MEDS ORDERED: LIDOCAINE 2%HCL (LOCAL ANESTH.) INJ 20ML MDV ONE ×3 (10:28→10:57)
[2020-06-20] MEDS: METOPROLOL TARTRATE 25 MG TAB PO SCH ×2 (10:32→22:03)
--- NOTE | 2020-06-20 11:28 | NUR ---
Nutrition Assessment Est energy needs 1797-1997kcal (18-20 kcal/kg BW 99.9kg) est protein needs 60-75g (0.6-0.75g/kg BW 99.9kg r/t elevated RFTs, ESRD no HD yet, reassess energy and protein if pt begins HD) Will monitor and reassess prn. Addendum: 06/20/20 at [address] Amended: Links added.
[2020-06-20] MEDS: B-COMPLEX W/ C & FOLIC ACID(NEPHROVITE TAB) PO SCH (12:28)
[2020-06-20] MEDS: ASPirin 81 mg TAB PO SCH (12:28)
[2020-06-20] MEDS: CLOPIDOGREL BISULFATE 75 MG TAB PO SCH (12:30)
[2020-06-20] MEDS: PANTOPRAZOLE 40 MG/10 ML VIAL INJ IV SCH (12:30)
[2020-06-20] MEDS: hydrALAZINE HCL 20 MG/ML VL IV PRN (13:39)
--- NOTE | 2020-06-20 15:50 | NUR ---
ROUNDS DR Shagufta DELEON ROUNDING ON PATIENT. INFORMED ADRIENNE THAT CHAIR TIME FOR PATIENT HAS BEEN SET UP. PER ADRIENNE: CONTACT NEPHROLOGY, TO CLEAR FOR D/C IF PATIENT DOES NOT NEED DIALYSIS TODAY. WILL CONTINUE TO MONITOR
--- NOTE | 2020-06-20 15:51 | NUR ---
CASE MANAGEMENT SPOKE WITH NEGRITO RE: PATIENT CHAIR TIME [facility] TU//SAT @ 1:00PM [id number] [place] [id number] Addendum: 06/20/20 at 1554 by JOSÉ MIGUEL HAMMOND RN RN PATIENT NEEDS TO BE AT CENTER AT 1:00PM [place] 06/21/20
[2020-06-20 17:32] VITALS: BP 166/76
--- NOTE | 2020-06-20 17:43 | NUR ---
SS consult regarding scheduling outpatient dialysis at [facility]. Contacted Jaylyn at [facility] ( [phone]) and patient scheduled for T,TH, S at [address] at [id number] [place] [address] location. Notified nurse that chair time can be arranged.
--- NOTE | 2020-06-20 18:00 | NUR ---
Patient went to stress test and tunnel HD dialysis cath placement at around 0900 and came back to the unit at [id number]. Morning medications given after patient came back per MD order. checked patient's vital signs per order. at 1323 BP 158/92 (map 121), HR90, o2 sat 95% on room air. At 1426 BP 160/90 (114), HR 89, at 1452, BP 163/91 (123), HR 84, at 1511 BP 162/88(117), at 1611 BP 161/83, at 1711, BP 166/76, at 1811, BP 164/95. PRN hydralazine IV 10 mg given but BP was in the early afternoon, but BP still high. Dr. Trye Shetty called/paged twice and left two messages, but still no response. Patient denies any chest pain or headache. Patient did not have any signs and symptoms of bleeding. report given to night cleaner RN at 1920 to continue patient care.
--- NOTE | 2020-06-20 19:00 | NUR ---
Opening Shift Note Assumed care of patient, awake and alert. Tunnel catheter on the right upper chest has dried blood around dressing, mild blood saturation. No S/S of distress/SOB or pain. Bed locked in the lowest position, side rails up X2, call light within reach. Instructed on POC and to call for assist PRN, will continue to monitor for changes Q1hr and PRN.
[2020-06-20] MEDS: amLODIPine BESYLATE 5 MG TAB PO SCH (20:05)
[2020-06-20 22:00] VITALS: BP 164/88
--- NOTE | 2020-06-21 | NUR ---
4X4 DRESSING ON RIGHT UPPER CHEST ON TUNNEL CATH INSERTION SITE HALF WAY SATURATED WITH BLOOD. WILL CONTINUE TO MONITOR
--- NOTE | 2020-06-21 02:41 | NUR ---
4X4 DRESSING ON RIGHT UPPER CHEST SATURATED WITH BLOOD. APPLIED PRESSURE, CHANGED DRESSING NOW CLEAN AND INTACT. WILL CONTINUE TO MONITOR. NO SIGNS OF DISTRESS/ SOB AT THIS TIME.
[2020-06-21] MEDS: ACCU-CHEK COMFORT CURVE STRIP VI SCH ×5 (03:54→19:46)
[2020-06-21] MEDS: InsuLIN REG 1unit/0.01ml Soln (100units/ml) SC SCH ×5 (03:54→19:46)
--- NOTE | 2020-06-21 04:00 | NUR ---
ROUNDS PATIENT ASLEEP IN THE SUPINE POSITION. NO SIGNS OF DISTRESS/ SOB AT THIS TIME. DRESSING AT THE RIGHT UPPER CHEST HAS MILD DRAINAGE. WILL CONTINUE TO MONITOR./
[2020-06-21 05:00] VITALS: BP 132/73
[2020-06-21] MEDS: SODIUM CHLOR 0.9% PF (SALINE LOCK) 10ML VIAL/SYR IV SCH ×3 (06:10→21:05)
--- NOTE | 2020-06-21 07:00 | NUR ---
CARE ENDORSED TO DAY SHIFT RN. PATIENT RESTING IN THE SEMI FOWLERS POSITION. DRESSING ON THE RIGHT UPPER CHEST DRY AND INTACT. NO SIGNS OF DISTRESS/ SOB.
[2020-06-21 08:36] VITALS: BP 153/89
[2020-06-21 09:13] LABS: Basophils # (auto) 0 10 ^3/uL (0-0.2); Basophils % (auto) 0.5 % (0.0-2.0); Eosinophils # (auto) 0 10 ^3/uL (0-0.8); Hematocrit 29.3 % (41.0-53.0); Hemoglobin 9.9 g/dL (13.5-17.5); Lymphocytes # (auto) 0.5 10 ^3/uL (0.4-5.4); Lymphocytes % (auto) 4.4 % (10.0-50.0); Mean Corpuscular Hemoglobin 28.5 pg (28.0-32.0); Mean Corpuscular Hgb Conc. 33.7 g/dL (32.0-36.0); Mean Corpuscular Volume 84.6 fL (80.0-100.0); Monocytes # (auto) 1.6 10 ^3/uL (0-1.3); Monocytes % (auto) 15.2 % (0.0-12.0); Neutrophils # (auto) 8.6 10 ^3/uL (1.6-8.6); Neutrophils % (auto) 79.9 % (37.0-80.0); Platelet Count (auto) 258 10^3/uL (140-450); Red Blood Cells 3.47 10^6/uL (4.5-5.90); Red Cell Distribution Width 13.8 % (11.8-14.3); White Blood Cell 10.7 10^3/uL (4.4-10.8)
[2020-06-21 09:36] LABS: Calcium 8.4 mg/dL (8.5-10.1); Magnesium 2.5 mg/dL (1.6-2.6)
[2020-06-21] MEDS ORDERED: VERAPAMIL 2.5MG/ML INJ 2ML VIAL IV ONE (09:40)
[2020-06-21] MEDS ORDERED: fentaNYL CITRATE 100 MCG/2 ML VL ONE (09:40)
[2020-06-21] MEDS ORDERED: ANGIOMAX 250 MG VIAL IV ONE (09:40)
[2020-06-21] MEDS ORDERED: MIDAZOLAM HCL 1MG/1ML-2 ML VIAL ONE (09:41)
[2020-06-21] MEDS ORDERED: LIDOCAINE 2%HCL (LOCAL ANESTH.) INJ 20ML MDV ONE (09:41)
[2020-06-21] MEDS ORDERED: SODIUM CHL 0.9% 50 ML ONE (09:41)
[2020-06-21] MEDS ORDERED: IODIXANOL 320MG/ML 100ML BTL IV ONE (09:41)
--- NOTE | 2020-06-21 09:44 | NUR ---
dressing change dressing on right IJ TD cath site saturated with blood. dressing changed using aseptic technique. pt tolerated well.
[2020-06-21 09:53] LABS: BUN/Creatinine Ratio 8.3; Potassium 3.8 mmol/L (3.5-5.1)
--- NOTE | 2020-06-21 10:09 | NUR ---
0948 06/21/20 Faxed to [email or web address] [facility] at [phone], Nelia Calderón [facility] at [phone] and [facility] at [phone] as well as [facility] at [phone], face sheet, Order for home health for safety evaluation, H/P, COVID results. Pending review and accepting home health agency.
--- NOTE | 2020-06-21 10:36 | NUR ---
Patient's morning vitals were stable. one of the Dressings on Tunnel HD cath was soild with serosanguious discharge, changed the dressing and put pressure on it, encouraged patient not to use too much of right arm. Patient went down to cemetery laborer at 0900 for procedure. Will continue patient care.
[2020-06-21] MEDS ORDERED: TICAGRELOR 90 MG TAB ONE (10:41)
[2020-06-21] MEDS ORDERED: ASPirin 325 MG TAB ONE (10:41)
--- NOTE | 2020-06-21 10:49 | NUR ---
Patient brought to recovery via bed, report received from ANITA Gibbs and ANITA Correia. Patient is AO x 4, denies pain at this time. NAD noted. Left radial site is benign no s/s of bleeding or hematoma formation. Vasc Band is in place, positive circulation, sensation and movement noted to BUE. Patient educated on post-procedure care instructions, verbalized understanding.
--- NOTE | 2020-06-21 11:04 | NUR ---
Patient is resting in bed, denies pain. NAD noted. Left radial site remains unchanged.
--- NOTE | 2020-06-21 11:18 | NUR ---
Report given to primary RN, Fay.
--- NOTE | 2020-06-21 11:33 | NUR ---
Patient taken to telemetry unit via bed, aniline press worker in place. NAD noted upon departure. Primary RN, Fay present at bedside to receive patient and witness left radial site benign no s/s of bleeding or hematoma formation. Bed set in lowest locked position with side rails up x2, call light is within reach and bed alarm set on for safety. Care endorsed to primary RN.
[2020-06-21 12:00] VITALS: BP 150/91
--- NOTE | 2020-06-21 12:43 | NUR ---
1240 06/21/20 - Contacted [facility] at [phone] to follow up on pending home health for safety evaluation, Spoke with community outreach coordinator Cate who stated they would accept patient for service after discharge to home. Notified [facility] d/c town planner at [phone] for authorization for home health agency.
[2020-06-21] MEDS: PANTOPRAZOLE 40 MG/10 ML VIAL INJ IV SCH (13:52)
[2020-06-21] MEDS: amLODIPine BESYLATE 5 MG TAB PO SCH ×2 (13:56→21:23)
[2020-06-21] MEDS: ASPirin 81 mg TAB PO SCH (13:59)
[2020-06-21] MEDS: METOPROLOL TARTRATE 25 MG TAB PO SCH ×2 (13:59→18:30)
[2020-06-21] MEDS: B-COMPLEX W/ C & FOLIC ACID(NEPHROVITE TAB) PO SCH (14:02)
[2020-06-21 16:00] VITALS: BP 161/85
--- NOTE | 2020-06-21 16:21 | NUR ---
Patient came back from catheter builder at around 1130. vital signs within normal range, no s/s of bleeding, right wrist access line did not bleed, removed airx5 Q15 minutes per instructions/protocol, patient tolerated well, resume morning medications protonix IV nepro. Dialysis came in the afternoon to do dialysis so lopressor and norvasc withheld. will give it after dialysis if BP is elevated. Patient received blood thinner during cath procedure, so called Dr. Field to give plavix or not, Dr. Shetty asked to ask Dr. Chawla, the truss builder. paged him, but did not return the call. will continue to monitor patient care.
[2020-06-21] MEDS: CLOPIDOGREL BISULFATE 75 MG TAB PO SCH (17:50)
--- NOTE | 2020-06-21 18:59 | NUR ---
After dialysis patient's systolic blood pressure was above 160 mm Hg, lopressor and norvasc givn. Dr. Chawla finally called back at around 1700 saying okay to give plavix 75 mg, but hold tonight's 300mg Plavix dose. Report given to night RN and hold the evening plavix.
--- NOTE | 2020-06-21 19:05 | NUR ---
Opening Shift Note Assumed care of patient, awake and alert. Patient on room air oxygen saturation 97%. No S/S of distress/SOB or pain. Bed locked in the lowest position, side rails up X2, call light within reach. Left upper chest tunnel cath dressing shows mild bright red on gauze. Left dressing clean and intact. Instructed on POC and to call for assist PRN, will continue to monitor for changes Q1hr and PRN.
[2020-06-21] MEDS: hydrALAZINE HCL 20 MG/ML VL IV PRN (19:49)
[2020-06-21] MEDS ORDERED: CLOPIDOGREL 300 MG TAB PO ONE (21:00)
[2020-06-22] VITALS (7 sets, daily range): BP systolic 141–160; BP diastolic 87–92
[2020-06-22] MEDS: ACCU-CHEK COMFORT CURVE STRIP VI SCH ×7 (00:09→23:19)
[2020-06-22] MEDS: InsuLIN REG 1unit/0.01ml Soln (100units/ml) SC SCH ×7 (05:05→23:18)
[2020-06-22] MEDS: SODIUM CHLOR 0.9% PF (SALINE LOCK) 10ML VIAL/SYR IV SCH ×3 (05:27→21:39)
--- NOTE | 2020-06-22 07:00 | NUR ---
DRESSING CHANGE ON RIGHT UPPER CHEST. DRESSING CLEAN AND INTACT WITH NO DRAINAGE. INSTRUCTED PATIENT TO LAY IN THE SEMI FOWLERS POSITION TO PREVENT FROM BLEEDING. NO SIGNS OF DISTRESS/ SOB AT THIS TIME.
--- NOTE | 2020-06-22 07:30 | NUR ---
CLOSING NOTE CARE ENDORSED TO DAY SHIFT. PATIENT RESTING IN THE HIGH FOWLERS POSITION WITH NO SIGNS OF SOB/ DISTRESS. LEFT RIGHT DRESSING CLEAN AND INTACT. RIGHT UPPER CHEST DRESSING DRY, CLEAN AND INTACT.
[2020-06-22 07:51] LABS: Basophils # (auto) 0 10 ^3/uL (0-0.2); Basophils % (auto) 0.2 % (0.0-2.0); Eosinophils # (auto) 0 10 ^3/uL (0-0.8); Hematocrit 28.9 % (41.0-53.0); Hemoglobin 9.6 g/dL (13.5-17.5); Lymphocytes # (auto) 0.4 10 ^3/uL (0.4-5.4); Lymphocytes % (auto) 3.1 % (10.0-50.0); Mean Corpuscular Hgb Conc. 33.1 g/dL (32.0-36.0); Mean Corpuscular Volume 84.6 fL (80.0-100.0); Monocytes # (auto) 1.7 10 ^3/uL (0-1.3); Monocytes % (auto) 14.7 % (0.0-12.0); Neutrophils # (auto) 9.6 10 ^3/uL (1.6-8.6); Platelet Count (auto) 218 10^3/uL (140-450); Red Blood Cells 3.42 10^6/uL (4.5-5.90); Red Cell Distribution Width 13.7 % (11.8-14.3); White Blood Cell 11.7 10^3/uL (4.4-10.8)
[2020-06-22 07:52] LABS: Potassium 3.5 mmol/L (3.5-5.1)
[2020-06-22 07:56] LABS: BUN/Creatinine Ratio 8.7; Magnesium 1.9 mg/dL (1.6-2.6)
--- NOTE | 2020-06-22 08:00 | NUR ---
Patient ambulated to bathroom and back to bed; now sitting on side of bed. Checked blood sugar: 146 mg/dl - will cover per sliding scale. Patient stable.
--- NOTE | 2020-06-22 08:30 | NUR ---
Covered per sliding scale. Patient stable at this time.
--- NOTE | 2020-06-22 09:45 | NUR ---
Dr. Kimball came to room to see patient; patient in bathroom at this time.
[2020-06-22] MEDS: ASPirin 81 mg TAB PO SCH (10:02)
[2020-06-22] MEDS: B-COMPLEX W/ C & FOLIC ACID(NEPHROVITE TAB) PO SCH (10:03)
[2020-06-22] MEDS: METOPROLOL TARTRATE 50 MG TAB PO SCH ×2 (10:03→21:39)
[2020-06-22] MEDS: CLOPIDOGREL BISULFATE 75 MG TAB PO SCH ×2 (10:04→10:06)
[2020-06-22] MEDS: PANTOPRAZOLE 40 MG/10 ML VIAL INJ IV SCH (10:05)
--- NOTE | 2020-06-22 10:09 | NUR ---
Scheduled medications given per order. Patient resting comfortably in bed with no complaint of pain. Patient has bleeding from site on right side of neck; will clean area and apply new dressing.
--- NOTE | 2020-06-22 12:19 | NUR ---
Checked blood sugar: 187 mg/dl - will cover per sliding scale. Patient stable.
[2020-06-22] MEDS ORDERED: METO-159 PO (13:27)
[2020-06-22] MEDS ORDERED: CLOP75TA28 PO (13:27)
[2020-06-22] MEDS ORDERED: ASPI-231 PO (13:27)
[2020-06-22] MEDS ORDERED: AML5T PO (13:27)
[2020-06-22] MEDS ORDERED: ERGO1CAP23 PO (13:27)
--- NOTE | 2020-06-22 13:45 | NUR ---
Paged Dr. Shepherd regarding oozing from site just above tunnel cath. Received call back. States he will come and see patient and assess site.
--- NOTE | 2020-06-22 15:45 | NUR ---
ROSE GRADING SUPERVISOR ACCOMPANIED DR GOLDMAN TO EVALUATE BLOOD OOZING FROM TUNNELED CATHETER SITE - DR GOLDMAN CLEANSED SITE WITH CHLORHEXIDINE AND APPLIED SNOW CLOTTING GAUZE AND MANUAL PRESSURE X 10 MIN. DRY 4X4 GAUZE APPLIED AND SECURED WITH TEGADERM - DR GOLDMAN WILL RECHECK IN 1-2 HOURS - ANITA KHAN NOTIFIED.
[2020-06-22] MEDS: ONDANSETRON HCL 4 MG/2 ML VIAL IV PRN (16:03)
--- NOTE | 2020-06-22 16:06 | NUR ---
Checked blood sugar: 183 mg/dl - will cover per sliding scale. Patient also medicated for nausea. Patient stable at this time. Addendum: 06/22/20 at 1610 by BILL ROYAL RN RN Will give insulin coverage closer to delivery of dinner tray.
--- NOTE | 2020-06-22 16:50 | NUR ---
Patient resting quietly in bed with no complaint of pain; only complaint is still hiccups. Doctor paged.
--- NOTE | 2020-06-22 17:48 | NUR ---
SLIVER HANDLER ACCOMPANIED DR GOLDMAN TO RECHECK TUNNELED CATH SITE WHERE OOZING IS OCCURRING AFTER SNOW CLOTTING DRSG APPLIED - SITE CONTINUES TO OOZE BLOOD - DR GOLDMAN REMOVED DRSG AND APPLIED MORE SNOW GAUZE TO SITE WITH 4X4 GAUZE AND COVERED WITH TEGADERM. PATIENT INSTRUCTED TO KEEP HOB NO HIGHER THAN 35 DEGREES WITH IV BAG TO SITE IN PLACE OF SANDBAG. DR GOLDMAN ALSO RECOMMENDS THAT PATIENT NOT BE DISCHARGED TODAY AND WILL RECHECK PATIENT IN AM FOR POSSIBLE FURTHER INTERVENTIONS IF NEEDED. SLIVER HANDLER INFORMED PATIENT'S RN BILL OF ABOVE - STATES WILL NOTIFY DR HERNANDEZ.
--- NOTE | 2020-06-22 17:50 | NUR ---
Recommend to hold discharge Received call from Diana in Radiology. Stated that Dr. Shepherd assessed the bleeding site on two separate occasions and applied 'snow' to site, but site continues to bleed. Pressure (NS liter bag vs sand bag) was placed on site. Doctor recommends to hold discharge today and will reevaluate patient tomorrow. Will inform Dr. Shetty.
[2020-06-22] MEDS: CALCIUM CARB 500 MG CHEW TAB PO PRN (18:03)
--- NOTE | 2020-06-22 18:05 | NUR ---
Patient medicated for symptoms of GERD. Covered per sliding scale. Patient stable throughout shift.
--- NOTE | 2020-06-22 18:35 | NUR ---
Patient resting comfortably in bed with no distress noted. Patient stable at this time.
--- NOTE | 2020-06-22 18:40 | NUR ---
Called and left message for Dr. Prabhjot Field regarding discharge hold per Dr. Shepherd's recommendation.
--- NOTE | 2020-06-22 19:25 | NUR ---
ASSUMED CARE, PT. AWAKE, NO BLEEDING AT CATHETER SITE, ONE LITER OF BAG IN PLACE, NO SOB.
[2020-06-22] MEDS: amLODIPine BESYLATE 5 MG TAB PO SCH (21:40)
--- NOTE | 2020-06-22 21:55 | NUR ---
PT. WENT TO BATHROOM, ASSISTED PT. BACK TO BED, PT. C/O LITTLE DIZZY, CHECK PT. V/S - BP -152/85, P- 81, SATS- 93%, NO SOB. TO KEEP MONITOR.
--- NOTE | 2020-06-23 | NUR ---
PT. RESTING WITH EYES CLOSED, NO BLEEDING NOTED, NO DIZZINESS, NOT IN DISTRESS.
--- NOTE | 2020-06-23 04:00 | NUR ---
NO BLEEDING NOTED, NOT IN DISTRESS.
[2020-06-23] MEDS: InsuLIN REG 1unit/0.01ml Soln (100units/ml) SC SCH ×2 (04:02→08:00)
[2020-06-23] MEDS: ACCU-CHEK COMFORT CURVE STRIP VI SCH ×2 (04:03→08:14)
[2020-06-23 04:58] VITALS: BP 150/84
[2020-06-23] MEDS: CALCIUM CARB 500 MG CHEW TAB PO PRN ×2 (05:02→08:08)
[2020-06-23] MEDS: SODIUM CHLOR 0.9% PF (SALINE LOCK) 10ML VIAL/SYR IV SCH (05:02)
[2020-06-23 06:47] LABS: Basophils # (auto) 0 10 ^3/uL (0-0.2); Basophils % (auto) 0.2 % (0.0-2.0); Eosinophils # (auto) 0 10 ^3/uL (0-0.8); Hematocrit 27.2 % (41.0-53.0); Hemoglobin 9.3 g/dL (13.5-17.5); Lymphocytes # (auto) 0.6 10 ^3/uL (0.4-5.4); Lymphocytes % (auto) 5.3 % (10.0-50.0); Mean Corpuscular Hemoglobin 28.7 pg (28.0-32.0); Mean Corpuscular Hgb Conc. 34.2 g/dL (32.0-36.0); Monocytes # (auto) 1.2 10 ^3/uL (0-1.3); Monocytes % (auto) 10.7 % (0.0-12.0); Neutrophils # (auto) 9.6 10 ^3/uL (1.6-8.6); Neutrophils % (auto) 83.8 % (37.0-80.0); Platelet Count (auto) 202 10^3/uL (140-450); Red Blood Cells 3.24 10^6/uL (4.5-5.90); Red Cell Distribution Width 13.6 % (11.8-14.3); White Blood Cell 11.5 10^3/uL (4.4-10.8)
[2020-06-23 06:53] LABS: BUN/Creatinine Ratio 7.9; Calcium 7.7 mg/dL (8.5-10.1); Magnesium 2.3 mg/dL (1.6-2.6); Potassium 3.2 mmol/L (3.5-5.1)
[2020-06-23 09:00] VITALS: BP 138/87
[2020-06-23] MEDS: CLOPIDOGREL BISULFATE 75 MG TAB PO SCH ×2 (10:00→11:16)
[2020-06-23 11:13] LABS: Hepatitis B Surface Antibody Negative
[2020-06-23] MEDS: PANTOPRAZOLE 40 MG/10 ML VIAL INJ IV SCH (11:15)
[2020-06-23] MEDS: ASPirin 81 mg TAB PO SCH (11:16)
[2020-06-23] MEDS: B-COMPLEX W/ C & FOLIC ACID(NEPHROVITE TAB) PO SCH (11:16)
[2020-06-23] MEDS: METOPROLOL TARTRATE 50 MG TAB PO SCH (11:18)
[2020-06-23] MEDS ORDERED: DOXY-332 PO (12:03)
[2020-06-23] MEDS ORDERED: DOXYCYCLINE 100 MG TAB/CAP PO ONE ×2 (12:15)
--- NOTE | 2020-06-23 12:15 | NUR ---
Patient discharged to home by wheelchair and family transport to dialysis appt 1PM. Discharge education provided and voices understanding. IV d/c. Tele d/c.
[2020-06-23 13:19] LABS: Hepatitis B Surface Antigen Negative (Negative)
== END 2020-06-23 12:15 | disposition home health service (06) | DRG 174 ==
LOC: ER 17:13 → TELE 17:14 → TELE-WESTW 06-17 17:12
PROVIDERS: ADMIT Nurse Practitioner Family; ATTEND Internal Medicine
PROC: 0JH63XZ Insertion of Tunneled Vascular Access Device into Chest Subcutaneous Tissue and Fascia, Percutaneous Approach (ICD-10-PCS; 2020-06-20)
PROC: 02HV33Z Insertion of Infusion Device into Superior Vena Cava, Percutaneous Approach (ICD-10-PCS; 2020-06-20)
PROC: B5181ZA Fluoroscopy of Superior Vena Cava using Low Osmolar Contrast, Guidance (ICD-10-PCS; 2020-06-20)
PROC: B548ZZA Ultrasonography of Superior Vena Cava, Guidance (ICD-10-PCS; 2020-06-20)
PROC: 027035Z Dilation of Coronary Artery, One Artery with Two Drug-eluting Intraluminal Devices, Percutaneous Approach (ICD-10-PCS; principal; 2020-06-21)
PROC: B2151ZZ Fluoroscopy of Left Heart using Low Osmolar Contrast (ICD-10-PCS; 2020-06-21)
PROC: B2111ZZ Fluoroscopy of Multiple Coronary Arteries using Low Osmolar Contrast (ICD-10-PCS; 2020-06-21)
PROC: 4A023N7 Measurement of Cardiac Sampling and Pressure, Left Heart, Percutaneous Approach (ICD-10-PCS; 2020-06-21)
PROC: 5A1D70Z Performance of Urinary Filtration, Intermittent, Less than 6 Hours Per Day (ICD-10-PCS; 2020-06-21)
DX: I21.4 Non-ST elevation (NSTEMI) myocardial infarction (principal); N17.0 Acute kidney failure with tubular necrosis; N18.6 End stage renal disease; E11.65 Type 2 diabetes mellitus with hyperglycemia; I12.0 Hypertensive chronic kidney disease with stage 5 chronic kidney disease or end stage renal disease; E11.22 Type 2 diabetes mellitus with diabetic chronic kidney disease; Z20.828 Contact with and (suspected) exposure to other viral communicable diseases; E78.5 Hyperlipidemia, unspecified; R77.8 Other specified abnormalities of plasma proteins; D63.1 Anemia in chronic kidney disease; E55.9 Vitamin D deficiency, unspecified; K21.9 Gastro-esophageal reflux disease without esophagitis; I25.10 Atherosclerotic heart disease of native coronary artery without angina pectoris; E66.9 Obesity, unspecified; Z68.29 Body mass index [BMI] 29.0-29.9, adult; Z99.2 Dependence on renal dialysis; Z82.49 Family history of ischemic heart disease and other diseases of the circulatory system; Z83.3 Family history of diabetes mellitus; Z95.5 Presence of coronary angioplasty implant and graft
CPT/HCPCS: 36415; 71045; 74176; 76775; 76942; 78452; 80048; 80053; 80061; 80307; 81001; 82140; 82306; 82570; 82728; 82962; 83036; 83540; 83550; 83735; 83880; 83970; 84100; 84156; 84300; 84484; 84550; 85025; 85610; 85730; 86706; 86803; 86850; 86900; 86901; 87340; 87426; 90935; 93005; 93017; 93306; 96365; 96375; 99152; 99153; C1874; C9113; G0378; J0153; J1815; J2250; J2405; Q0162; Q9967